=== PATIENT | female | born 1980 | race Caucasian/White ===

== ENCOUNTER 2019-08-17 13:39 | Emergency (ER) | payer SELFPAY ==
[~2019-08-17] VITALS: Ht 152.4 cm; Wt 118.2 kg
[2019-08-17 13:52] VITALS: BP 121/83
[2019-08-17] MEDS ORDERED: IV NORMAL SALINE 1,000ML 1,000 ML IV ONE (14:00)
[2019-08-17] MEDS ORDERED: diphenhydrAMINE 50 MG/ML VIAL IVP ONE (14:00)
[2019-08-17] MEDS ORDERED: METOCLOPRAMIDE HCL 10 MG/2 ML VIAL. IV ONE (14:00)
[2019-08-17] MEDS ORDERED: KETOROLAC 30 MG/ML VIAL. IV ONE (14:00)
[2019-08-17] MEDS ORDERED: METO10TA81 PO (14:30)
--- NOTE | 2019-08-17 14:30 | PHYS DOC ---
Past History Past Medical History: No Pertinent History Past Surgical History: Appendectomy, Cholecystectomy, Hysterectomy, Tonsillectomy, Tubal ligation Alcohol Use: None General Adult EDM: Chief Complaint: HEADACHE HPI: HPI: Patient is a 39-year-old female presents with a one-week history of severe global throbbing headache. She describes both photophobia and phonophobia. She denies any lateralizing neurologic weakness. She does describe dizziness and a couple of falls secondary to being dizzy over the last week or so. She denies any fever or neck pain. [] Review of Systems: Review of Systems: Constitutional: Denies fever or chills Eyes: Denies change in visual acuity HENT: Denies nasal congestion or sore throat Respiratory: Denies cough or shortness of breath Cardiovascular: Denies chest pain or edema GI: Denies abdominal pain, nausea, vomiting, bloody stools or diarrhea : Denies dysuria Musculoskeletal: Denies back pain or joint pain Integument: Denies rash Neurologic: Per HPI Endocrine: Denies polyuria or polydipsia Lymphatic: Denies swollen glands Psychiatric: Denies depression or anxiety Heart Score: Risk Factors: Risk Factors: DM, Current or recent (<one month) smoker, HTN, HLP, family history of CAD, obesity. Risk Scores: Score 0 - 3: 2.5% MACE over next 6 weeks - Discharge Home Score 4 - 6: 20.3% MACE over next 6 weeks - Admit for Clinical Observation Score 7 - 10: 72.7% MACE over next 6 weeks - Early Invasive Strategies Current Medications: Current Meds: Current Medications Medications (Trade) Dose Ordered Sig/Harjit Start Time Stop Time Status Last Admin Dose Admin Diphenhydramine HCl (Benadryl) 25 mg 1X ONCE 08/17/19 14:00 08/17/19 14:03 DC 08/17/19 14:03 25 MG Ketorolac Tromethamine (Toradol 30mg Vial) 30 mg 1X ONCE 08/17/19 14:00 08/17/19 14:03 DC 08/17/19 14:03 30 MG Metoclopramide HCl (Reglan Vial) 10 mg 1X ONCE 08/17/19 14:00 08/17/19 14:03 DC 08/17/19 14:03 10 MG Sodium Chloride 1,000 ml @ 1,000 mls/hr 1X ONCE 08/17/19 14:00 08/17/19 14:59 08/17/19 14:03 1,000 MLS/HR Allergies: Allergies: Allergies Coded Allergies Type Severity Reaction Last Updated Verified No Known Drug Allergies 08/17/19 No Physical Exam: PE: Constitutional: Well developed, well nourished, moderate distress, non-toxic appearance. [] HENT: Normocephalic, atraumatic, bilateral external ears normal, oropharynx moist, no oral exudates, nose normal. [] Eyes: PERRLA, EOMI, conjunctiva normal, no discharge. [] Neck: Normal range of motion, no tenderness, supple, no stridor. [] Cardiovascular:Heart rate regular rhythm, no murmur [] Lungs & Thorax: Bilateral breath sounds clear to auscultation [] Abdomen: Bowel sounds normal, soft, no tenderness, no masses, no pulsatile masses. [] Skin: Warm, dry, no erythema, no rash. [] Back: No tenderness, no CVA tenderness. [] Extremities: No tenderness, no cyanosis, no clubbing, ROM intact, no edema. [] Neurologic: Alert and oriented X 3, normal motor function, normal sensory function, no focal deficits noted. [] Psychologic: Depressed affect. [] Current Patient Data: Vital Signs: Vital Signs Date Time Temp Pulse Resp B/P (MAP) Pulse Ox O2 Delivery O2 Flow Rate FiO2 08/17/19 13:52 98.6 71 24 121/83 (96) 96 EKG: EKG: [] Radiology/Procedures: Radiology/Procedures: [] Course & Med Decision Making: Course & Med Decision Making Pertinent Labs and Imaging studies reviewed. (See chart for details) [] Dragon Disclaimer: [employer] Disclaimer: This electronic medical record was generated, in whole or in part, using a voice recognition dictation system. Departure Departure: Impression: Primary Impression: Migraine headache Qualified Codes: G43.911 - Migraine, unspecified, intractable, with status migrainosus Disposition: HOME/RESIDENCE PRIOR TO ADM Condition: STABLE Referrals: PCP,NO (PCP) Patient Instructions: Migraine Headache Additional Instructions: Return to the emergency department with any new or concerning symptoms Scripts Metoclopramide Hcl (REGLAN) 10 Mg Tablet 10 MG PO PRN Q8HRS PRN for HEADACHE, #30 TAB 3 Refills Take 25 mg of Benadryl with each dose Prov: TRELL DE LA PAZ DO 08/17/19 Justification of Admission: Justification of Admission: Justification of Admission Dx: No TRELL DE LA PAZ DO Aug 17, 2019 14:30
== END 2019-08-17 14:48 | disposition home or self-care (01) ==
LOC: ER 13:39
DX: G43.911 Migraine, unspecified, intractable, with status migrainosus (principal); R42 Dizziness and giddiness
CPT/HCPCS: 96361; 96374; 96375; 99284; J1200; J1885; J2765; J7030